=== PATIENT | female | born 1955 | race Caucasian/White ===

== ENCOUNTER 2023-07-14 13:57 | Outpatient (CLI) | payer OTHER | END 2023-07-14 13:58 | disposition home or self-care (01) | LOC: BICRAD 13:57 | PROVIDERS: ATTEND Family Medicine | DX: R07.89 Other chest pain (principal) ==

== ENCOUNTER 2023-08-30 14:05 | Outpatient (CLI) | payer OTHER | END 2023-08-30 14:06 | disposition home or self-care (01) | LOC: BICMAMMO 14:05 | PROVIDERS: ATTEND Family Medicine | DX: Z12.31 Encounter for screening mammogram for malignant neoplasm of breast (principal); Z13.820 Encounter for screening for osteoporosis; M85.89 Other specified disorders of bone density and structure, multiple sites | CPT/HCPCS: 77063; 77067; 77080 ==

== ENCOUNTER 2024-10-05 13:11 | Outpatient (CLI) | payer OTHER | END 2024-10-05 13:12 | disposition home or self-care (01) | LOC: BICRAD 13:11 | PROVIDERS: ATTEND Family Medicine | DX: R05.3 Chronic cough (principal) | CPT/HCPCS: 71046 ==

== ENCOUNTER 2025-08-29 10:43 | Emergency (ER) | payer MEDICARE, OTHER | END 2025-08-29 13:18 | disposition home or self-care (01) | LOC: ERS 10:43 | DX: M79.641 Pain in right hand (principal); M25.511 Pain in right shoulder; E11.9 Type 2 diabetes mellitus without complications; Z79.84 Long term (current) use of oral hypoglycemic drugs; V89.2XXA Person injured in unspecified motor-vehicle accident, traffic, initial encounter | CPT/HCPCS: 99283 ==